=== PATIENT | male | born 1955 | race Two or more races ===

== ENCOUNTER 2017-04-04 05:42 | Observation (INO) | payer MEDICARE, OTHER ==
[~2017-04-04] VITALS: Ht 162.6 cm; Wt 76.2 kg
[2017-04-04] VITALS (24 sets, daily range): BP systolic 112–140; BP diastolic 68–80; PULSE 80–115; RESP 14–22; Ht 162.6 cm; Wt 76.2 kg
[2017-04-04 06:35] LABS: ADD SCAN DIFF NO
[2017-04-04 06:37] LABS: BASOPHILS % 0.4 % (0.0-2.0); EOSINOPHILS # 0.1 10^3/ul (0.0-0.5); EOSINOPHILS % 0.7 % (0.0-7.0); HEMATOCRIT 40.6 % (42.0-52.0); HEMOGLOBIN 13.7 g/dl (14.0-18.0); LYMPHOCYTES % 27.2 % (15.0-51.0); MEAN CORPUSCULAR HEMOGLOBIN 31.1 pg (29.0-33.0); MEAN CORPUSCULAR HGB CONC 33.7 g/dl (32.0-37.0); MEAN CORPUSCULAR VOLUME 92.1 fl (82.0-101.0); MEAN PLATELET VOLUME 9.8 fl (7.4-10.4); MONOCYTE # 0.6 10^3/ul (0.3-0.9); MONOCYTES % 7.5 % (0.0-11.0); NEUTROPHIL # 4.8 10^3/ul (1.6-7.5); NEUTROPHILS % 64.1 % (39.0-77.0); PLATELET COUNT 222 10^3/UL (140-415); RED BLOOD COUNT 4.41 10^6/ul (4.70-6.10); RED CELL DISTRIBUTION WIDTH 12.3 % (11.5-14.5); WHITE BLOOD COUNT 7.5 10^3/ul (4.8-10.8)
[2017-04-04 06:53] LABS: ALBUMIN 4.3 g/dl (3.3-4.9)
[2017-04-04 06:56] LABS: ALBUMIN/GLOBULIN RATIO 1.26; BILIRUBIN,INDIRECT 0.4 mg/dl (0-1.1); BILIRUBIN,TOTAL 0.4 mg/dl (0.2-1.3); TOTAL PROTEIN 7.7 g/dl (6.1-8.1)
[2017-04-04 07:03] LABS: CALCIUM 9.5 mg/dl (8.4-10.2); CREATININE 0.77 mg/dl (0.61-1.24); POTASSIUM 3.9 mmol/L (3.5-5.1)
[2017-04-04] MEDS ORDERED: BUPIVACAINE 0.5% (SDV) 30 ML INJ ONE (07:05)
[2017-04-04] MEDS ORDERED: ASPI81TA3 PO (07:05)
[2017-04-04] MEDS ORDERED: POLYMYXIN/BACITRACIN 1L IRRIG ONE (07:05)
[2017-04-04] MEDS ORDERED: METOPROLOL PO (07:05)
[2017-04-04] MEDS ORDERED: VANCOMYCIN 1 GM INJ ONE (07:05)
[2017-04-04] MEDS ORDERED: LIDOCAINE 0.5%/EPI (MDV) 50 ML INJ ONE (07:05)
[2017-04-04] MEDS ORDERED: THROMBIN 5000 UNIT VIAL ONE (07:05)
[2017-04-04] MEDS ORDERED: OMEG1CAP31 PO (07:05)
[2017-04-04] MEDS ORDERED: GLIP5TAB13 PO (07:05)
[2017-04-04] MEDS ORDERED: ATOR20TA38 PO (07:05)
[2017-04-04] MEDS ORDERED: LISI10TA2 PO (07:05)
[2017-04-04] MEDS ORDERED: GELATIN SIZE 100 SPONGE ONE (07:05)
[2017-04-04] MEDS ORDERED: METF1000 PO (07:05)
--- NOTE | 2017-04-04 07:35 | HPN ---
Date/Time of Note Date/Time of Note DATE: 04/04/17 TIME: 07:34 Interval H&P Admission Note Pt. seen H&P reviewed: No system changes JOSÉ SAEED MD April 04, 2017 07:35
[2017-04-04] MEDS ORDERED: MIDAZOLAM 1 MG/ML 2 ML INJ ONE (07:39)
[2017-04-04] MEDS ORDERED: PHENYLephrine (100 MCG/ML) 5ML SYG ONE (07:50)
--- NOTE | 2017-04-04 08:10 | PREOPHP ---
DATE OF ADMISSION: 04/04/2017 HISTORY OF PRESENT ILLNESS: The patient is a 61-year-old male with a history of chronic low back pain who a [id number] ago had acute exacerbation with left leg pain as well as saddle anesthesia. The patient did not have any persistent bowel or bladder issues, but ultimately sought evaluation for this after a few months, and a CT scan was performed that showed a herniated disk at L5-S1 as well as some stenosis at L4-L5. The patient was evaluated and ultimately seen, evaluated by me. I had recommended surgical intervention; however, the patient had declined surgery at that time. The patient returned many months later with the same left lower extremity symptoms radiating from his buttock down the posterior leg to the foot as well. The patient stated he still had symptoms consistent with some saddle anesthesia. A repeat MRI showed progression and L5-S1 disk. Nevertheless, there was still some left lateral recess stenosis. The patient at this time wished to pursue treatment. He denies any significant right lower extremity symptoms; he states that if he has these symptoms they are extremely rare and mild. He denies any significant low back pain per se other than chronic low back pain that he has always experienced. He states his main complaint is his left lower extremity radiating pain. He denies any bowel or bladder incontinence. He denies any neck pain or upper extremity numbness, tingling, or weakness. He denies any fevers, chills, or weight loss. PAST MEDICAL HISTORY: Significant for an VT, hypertension, diabetes. ALLERGIES: NO KNOWN DRUG ALLERGIES. PAST SURGICAL HISTORY: Denies. FAMILY HISTORY: Denies any history of significant inherited family disease or condition. SOCIAL HISTORY: The patient is a nonsmoker, rare drinker. He is . MEDICATIONS AT HOME: Include: 1. Atorvastatin. 2. Lisinopril. 3. Glipizide. 4. Metformin. 5. Baby aspirin -stopped. REVIEW OF SYSTEMS: A 12-point review of systems was performed. Pertinent positives and negatives listed in history of present illness and below. CONSTITUTIONAL: Denies any recent fevers, chills, or weight loss. HEMATOLOGIC: Denies any history of easy bruising or bleeding. PHYSICAL EXAMINATION: VITAL SIGNS: Temperature 97.7, pulse 80, respirations 20, blood pressure 114/68 , saturating 96% on room air. GENERAL: The patient is a well-developed, well-nourished, middle-aged male in no acute distress. HEAD AND NECK: Normocephalic, atraumatic. CHEST: Clear to auscultation. CARDIAC: Regular rate and rhythm. ABDOMEN: Nondistended, soft. EXTREMITIES: No clubbing, cyanosis, or edema. NEUROLOGIC: The patient is awake, alert, and oriented x3, fluent speech, follows commands readily and appropriately. Cranial nerves are intact. MOTOR: 5/5 bilaterally upper and lower extremities. The patient has grossly intact sensation to light touch, though assessment of saddle area not performed ; the patient deferred. Deep tendon reflexes were 2+, though the patient may have some slight increased right patellar reflex. Has no clonus, Babinski, or Adelfo sign. ASSESSMENT AND PLAN: A 61-year-old male with lumbar radiculopathy. I discussed patient's signs, symptoms, physical examination, and radiographic findings with him. The patient appears to have stenosis in the lateral recess which may compromise the L5 and/or S1 nerve roots on the left side. I discussed the risks, benefits, and alternatives of surgical intervention with the patient in detail. I explained that the patient's saddle anesthesia which has been present for over a year is unlikely to benefit from this operation as there does not appear to be any significant canal stenosis or compression of the spinal cord or cauda equina although this procedure this may help the patient's lower extremity radiculopathy. The patient consents for surgery. He has been cleared by his medical physician and is to be taken to OR. Dictated By: JOSÉ SAEED MD, LG/BERTA Conf#: [id number] DID#: [id number] MTDD
[2017-04-04] MEDS: CEFAZOLIN 2 GM/50 ML (PMX) 50 ML IVPB SCH (08:15)
[2017-04-04] MEDS ORDERED: EPHEDrine SULFATE 50 MG/5 ML SYG ONE (08:19)
[2017-04-04] MEDS ORDERED: SUCCINYLCHOLINE CHLORIDE 100 MG/5 ML SYG IV ONE (08:37)
[2017-04-04] MEDS ORDERED: LIDOCAINE 2% (SDV) 5 ML INJ ONE (08:37)
[2017-04-04] MEDS ORDERED: PROPOFOL 20 ML ONE (08:37)
[2017-04-04] MEDS ORDERED: ONDANSETRON 4 MG INJ ONE (08:37)
[2017-04-04] MEDS ORDERED: METOCLOPRAMIDE 10 MG INJ ONE (08:37)
[2017-04-04] MEDS ORDERED: FAMOTIDINE 20 MG INJ ONE (08:38)
[2017-04-04] MEDS ORDERED: HYDROmorphONE 2 MG/ML SYG ONE (10:26)
[2017-04-04] MEDS ORDERED: PROCHLORPERAZINE 10 MG INJ IV PRN (10:30)
[2017-04-04] MEDS ORDERED: FENTAnyl 50 MCG/ML VIAL IV PRN (10:30)
[2017-04-04] MEDS ORDERED: DIPHENHYDRAMINE 50 MG INJ IV PRN (10:30)
[2017-04-04] MEDS ORDERED: HYDROmorphONE (0.2 MG/ML) 10ML SYG IV PRN (10:30)
[2017-04-04] MEDS ORDERED: ONDANSETRON 4 MG INJ IV PRN ×3 (10:30→23:30)
[2017-04-04] MEDS ORDERED: MEPERIDINE 25 MG INJ IV PRN (10:30)
--- NOTE | 2017-04-04 10:58 | OPR ---
Date/Time of Note Date/Time of Note DATE: 04/04/17 TIME: 10:46 Operative Report Preoperative Diagnosis 1. lumbar stenosis L4-5, L5-S1. 2. lumbar radiculopathy. Postoperative Diagnosis 1. lumbar stenosis L4-5, L5-S1. 2. lumbar radiculopathy. Operation Performed 1. Left L4-5 hemilaminectomy, medial facetectomy and foraminotomy. 2. Left L5-S1 hemilaminectomy, medial facetectomy and foraminotomy. 3. Use of microscope for intraoperative microdissection. Surgeon: JOSÉ SAEED MD Anesthesia: general Anesthesiologist: AUREA JI MD Estimated Blood Loss: 0 - 10 ml's Specimens none. Tubes/Drains none. Complications: None Complications none. Pt Condition Post Procedure: stable Operative\Procedure Findings lateral recess stenosis. JOSÉ SAEED MD April 04, 2017 10:57
[2017-04-04] MEDS ORDERED: AL HYDROX/MG HYDROX/SIMETH 30 ML CUP PO PRN (11:00)
[2017-04-04] MEDS ORDERED: BETHANECHOL 25 MG TAB PO PRN (11:00)
[2017-04-04] MEDS ORDERED: ACETAMINOPHEN/CODEINE #3 TAB PO PRN (11:00)
[2017-04-04] MEDS ORDERED: NALOXONE (0.4 MG/ML) INJ IV PRN (11:00)
[2017-04-04] MEDS ORDERED: NACL 0.9% 3 ML SYG IV SCH ×2 (11:00→23:30)
[2017-04-04] MEDS ORDERED: DIPHENHYDRAMINE 50 MG CAP PO PRN (11:00)
[2017-04-04] MEDS ORDERED: ACETAMINOPHEN 325 MG TAB PO PRN ×2 (11:00→23:30)
[2017-04-04] MEDS ORDERED: ZOLPIDEM 5 MG TAB PO PRN (11:00)
[2017-04-04] MEDS ORDERED: CEPASTAT LOZENGE MT PRN (11:00)
--- NOTE | 2017-04-04 13:39 | RADRPT ---
PROCEDURE: Intraoperative fluoroscopy CLINICAL INDICATION: L4-S1 laminectomies TECHNIQUE: 3.5 seconds of fluoroscopy time was utilized. 2 Images are submitted for interpretation. COMPARISON: None FINDINGS: Successful intraoperative lumbar localization was performed. There are skin probes directed at the L4-5 and L5-S1 levels. IMPRESSION: Successful intraoperative, lumbar localization for L4-S1 laminectomies. RPTAT: EE .Martina Eugene MD, Date Time Electronically viewed and signed by .Martina Eugene MD, on 04/04/2017 13:39 .F/
[2017-04-04] MEDS: CEFAZOLIN 1 GM/50 ML (PMX) 50 ML IVPB SCH ×3 (13:50→23:55)
--- NOTE | 2017-04-04 14:16 | OPR ---
DATE OF OPERATION: 04/04/2017 PREOPERATIVE DIAGNOSES: 1. Lumbar stenosis L4, lumbar stenosis L5. 2. Lumbar radiculopathy. POSTOPERATIVE DIAGNOSES: 1. Lumbar stenosis L4, lumbar stenosis L5. 2. Lumbar radiculopathy. OPERATIONS PERFORMED: 1. Left L4-L5 hemilaminectomy, medial facetectomy, and foraminotomy. 2. Left L4-L5 hemilaminectomy, medial facetectomy, and foraminotomy. 3. Use of microscope for intraoperative microdissection. SURGEON: José Llamas MD ANESTHESIOLOGIST: Dr. Vanna Sarkar ANESTHESIA: General. ESTIMATED BLOOD LOSS: 10 mL. SPECIMENS COLLECTED: None. DRAINS PLACED: None. COMPLICATIONS: None. DISPOSITION: Recovery. INDICATIONS: The patient is a 61-year-old male with a history of chronic left lumbar radiculopathy. MRI revealed predominantly lateral recess stenosis at L5- S1 and L4-L5. The patient had disk bulge at L5-S1, but on serial MRI this had regressed. The patient also preoperative saddle anesthesia from likely when the patient had a herniated disk over a year before, but there did not appear to be any significant recurrent central canal stenosis. The risks, benefits, and alternatives of surgical intervention were discussed with the patient who consented to the procedure. DESCRIPTION OF PROCEDURE: The patient was seen preoperatively and appropriate surgical side confirmed. The patient was brought to the OR. He was sedated, intubated, and anesthesia was successfully induced. He was placed in a prone position on a Nathan frame. All pressure points were checked for appropriate padding. A Pearson catheter was placed. Sequential compression devices were placed. Perioperative antibiotics were given. After a surgical time out, the procedure commenced. A 10-blade knife was used to make an incision over the L4, L5, S1 spinous processes. Bovie electrocautery was used to dissect the spinous processes. Instrumentation was placed to localize the correct operative levels. Unilateral subperiosteal dissection along the spinous process of L4, L5, and S1 to medial facet was performed, and then Carlin self-retaining retractors were placed in the disk space. The patient had Carlin retractors placed inside the operative cavity. The microscope was brought for microdissection. Hemilaminectomy of the superior aspect of L5 and inferior aspect of L4 carried laterally to the medial facet joint was performed with a #2 and 3 mm Kerrison rongeurs as well as a high-speed drill. Ligaments and bone appeared to cause stenosis in the lateral recess and some compression of the L5 nerve root as it passed en passage at the L4-L5 level. A Sidon was used to palpate superiorly and inferiorly. There did not appear to be any evidence of significant compression. Next, a hemilaminectomy at the superior aspect of S1 and inferior aspect of L5 lamina was performed and carried out to the medial facet joint after removal of ligamentum flavum. S1 nerve root was visualized from its takeoff and inferiorly. The nerve root was retracted medially to look at the disk space where previously the disk herniation had been seen radiographically. Although there was some slight disk bulge, there did not appear to be any clear opening or violation of the annulus nor did this appear to be significantly compressed. I inspected the shoulder and opened up the space between the thecal sac and the S1 nerve root to investigate the axilla. Again, there was no free fragment visible, and given the bony and ligamentous removal, there did not appear to be a significant enough disk bulge that it was felt appropriate to open up the annulus for this. Overall, the nerve root appeared completely decompressed. Hemostasis was achieved with bipolar electrocautery and the wound was copiously irrigated with bacitracin irrigation. The incision was then closed with 0 Vicryl sutures in the fascia, 2-0 interrupted Vicryl sutures in the subcutaneous tissue, 3-0 interrupted Vicryl sutures in the subcuticular layer, and a running 4-0 subcuticular suture was used to close the skin. Dermabond was placed in the incision, allowed to dry, and a sterile dressing applied. The patient was taken off the table and extubated. He was taken to recovery. Sponge, needle, and cottonoid count were reported correct at the end of the case. Electrophysiologic monitoring with SSEP and EMG were performed and appeared normal at baseline and at the end of the case. Dictated By: JOSÉ LLAMAS MD, LG/BERTA Conf#: [id number] DID#: [id number] MTDD
--- NOTE | 2017-04-04 15:00 | CONS ---
Date/Time of Note Date/Time of Note DATE: 04/04/17 TIME: 14:52 Consultation Date/Type/Reason Admit Date/Time April 04, 2017 at 05:42 Reason for Consultation 61 year old male with history of HTN, Spinal stenosis, Hyperlipidemia, OA, CAD with stent in LCX now post spinal surgery. Thus far surgery is uneventful and he is awake and alert Constitutional: no complaints Eyes: other Social History Smoking Status: Never smoker Exam/Review of Systems Vital Signs Vitals Vital Signs Date Time Temp Pulse Resp B/P Pulse Ox O2 Delivery O2 Flow Rate FiO2 04/04/17 12:07 102 22 121/77 100 Nasal Cannula 04/04/17 11:21 2.0 04/04/17 10:58 97.8 Results Result Diagram: 04/04/17 0620 04/04/17 0620 Results 24 hrs Laboratory Tests Test 04/04/17 06:20 04/04/17 07:03 04/04/17 10:51 White Blood Count 7.5 Red Blood Count 4.41 L Hemoglobin 13.7 L Hematocrit 40.6 L Mean Corpuscular Volume 92.1 Mean Corpuscular Hemoglobin 31.1 Mean Corpuscular Hemoglobin Concent 33.7 Red Cell Distribution Width 12.3 Platelet Count 222 Mean Platelet Volume 9.8 Neutrophils % 64.1 Lymphocytes % 27.2 Monocytes % 7.5 Eosinophils % 0.7 Basophils % 0.4 Nucleated Red Blood Cells % 0.0 Neutrophils # 4.8 Lymphocytes # 2.0 Monocytes # 0.6 Eosinophils # 0.1 Basophils # 0.0 Nucleated Red Blood Cells # 0.0 Sodium Level 144 Potassium Level 3.9 Chloride Level 105 Carbon Dioxide Level 26 Anion Gap 17 H Blood Urea Nitrogen 15 Creatinine 0.77 Glucose Level 110 Calcium Level 9.5 Total Bilirubin 0.4 Direct Bilirubin 0.00 Indirect Bilirubin 0.4 Aspartate Amino Transf (AST/SGOT) 29 Alanine Aminotransferase (ALT/SGPT) 47 Alkaline Phosphatase 60 Total Protein 7.7 Albumin 4.3 Globulin 3.40 H Albumin/Globulin Ratio 1.26 Bedside Glucose 100 107 Medications Medications Current Medications Cefazolin Sodium/ Dextrose 50 ml @ 100 mls/hr OC IVPB ; Start 04/04/17 at 07:30 Potassium Chloride/Sodium Chloride (NS-KCl 20 Meq) 1,000 ml @ 100 mls/hr Q10H IV ; Start 04/04/17 at 07:30 Acetaminophen/ Codeine Phosphate (Tylenol No.3) 1 tab Q4H PRN PO PAIN LEVEL 1-5 ; Start 04/04/17 at 11:00 Acetaminophen/ Hydrocodone Bitart 1 tab 1 tab Q4H PRN PO PAIN LEVEL 1-5; Start 04/04/17 at 11:00 Cefazolin Sodium (Ancef 1 Gm/50 ml (Pmx)) 50 ml @ 100 mls/hr Q6 IVPB Last administered on 04/04/17t 13:50; Admin Dose 100 MLS/HR; Start 04/04/17 at 12:00 ; Stop 04/05/17 at 06:29 Zolpidem Tartrate (Ambien) 5 mg HS PRN PO INSOMNIA; Start 04/04/17 at 11:00 Ondansetron HCl (Zofran Inj) 4 mg Q6H PRN IV NAUSEA AND/OR VOMITING; Start at 11:00 Al Hydrox/Mg Hydrox/Simethicone (Mag-Al Plus) 15 ml Q4H PRN PO CONSTIPATION; Start 04/04/17 at 11:00 Docusate Sodium (Colace) 100 mg BID PO ; Start 04/05/17 at 09:00 Acetaminophen (Tylenol Tab) 650 mg Q4H PRN PO TEMP GREATER THAN 101F OR BRAVO; Start 04/04/17 at 11:00 Ferrous Sulfate (Ferrous Sulfate (Ec)) 325 mg TID PO ; Start 04/05/17 at 09:00 Diazepam (Valium) 5 mg Q4H PRN PO MUSCLE SPASMS; Start 04/04/17 at 11:00 Phenol (Cepastat Lozenge) 1 lozenge PRN PRN MT SORE THROAT; Start 04/04/17 at 11:00 Bethanechol Chloride (Urecholine) 25 mg PRN PRN PO UNABLE TO VOID; Start at 11:00 Diphenhydramine HCl (Benadryl) 50 mg Q6H PRN PO PRURITUS; Start 04/04/17 at 11: 00 Naloxone HCl (Narcan) 0.2 mg Q2M PRN IV RR 8 BREATHS/MIN OR LESS; Start at 11:00 SUNITHA ANGEL MD April 04, 2017 14:59
[2017-04-04] MEDS: ACCU-CHEK XX SCH (18:03)
[2017-04-04] MEDS: glipiZIDE 5 MG TAB PO SCH (18:03)
[2017-04-04] MEDS: metFORMIN 500 MG TAB PO SCH (18:03)
[2017-04-04] MEDS: DIAZEPAM 5 MG TAB PO PRN ×2 (18:03→23:55)
[2017-04-04] MEDS: HYDROCODONE/APAP (5/325) TAB PO PRN ×2 (19:41→23:56)
--- NOTE | 2017-04-04 20:22 | QN ---
Documentation Comment [id number] LESLIE PIZANO MD April 04, 2017 20:22
[2017-04-04] MEDS ORDERED: ATORVASTATIN 20 MG TAB PO SCH (21:00)
[2017-04-04] MEDS: NS + KCL 20 MEQ 1,000 ML IV SCH (21:55)
[2017-04-04] MEDS: SOD CHLORIDE 0.45% 1,000 ML IV SCH (23:07)
[2017-04-04] MEDS ORDERED: MAGNESIUM HYDROXIDE 30ML CUP PO PRN (23:30)
[2017-04-04] MEDS ORDERED: DOCUSATE SODIUM 100 MG CAP PO PRN (23:30)
[2017-04-05 00:05] VITALS: BP 110/70; RESP 20
--- NOTE | 2017-04-05 00:33 | HP ---
DATE OF ADMISSION: 04/04/2017 HISTORY OF PRESENT ILLNESS: The patient is a 61-year-old male, who has lumbar stenosis L4-5, L5-S1, lumbar radiculopathy. The patient underwent left 4-5 hemilaminectomy and medial facetectomy, and foraminectomy, left L5-S1 hemilaminectomy, medial facetectomy, and laminectomy. The patient is being seen post-procedure. The patient does have a history of hypertension and history of diabetes mellitus. The patient has a history of dyslipidemia. ALLERGY HISTORY: Denies. FAMILY HISTORY: Denies. SOCIAL HISTORY: Denies. MEDICATIONS: 1. Aspirin. 2. Lipitor. 3. Glipizide. 4. bp meds 5. Metformin. 6. bbblocker. 7. Metoprolol. REVIEW OF SYSTEMS: HEENT: Unremarkable. RESPIRATORY: Unremarkable. CARDIOVASCULAR: Unremarkable. ABDOMEN: Unremarkable. EXTREMITIES: Denies numbness and tingling. PHYSICAL EXAMINATION: GENERAL: The patient is awake, alert. VITAL SIGNS: Pulse of 102, blood pressure 114/72. HEAD: Atraumatic, normocephalic. Pupils equal, reactive to light. No pale conjunctivae or icterus. NECK: Supple. LUNGS: Clear. CARDIOVASCULAR: S1, S2 are normal. ABDOMEN: Soft, nontender. Bowel sounds present. No palpable mass. EXTREMITIES: There is no cyanosis, clubbing, or edema. CENTRAL NERVOUS SYSTEM: The patient is awake and alert. Moving upper and lower extremities without difficulty. LABORATORY DATA: Hematocrit 40.6, sodium 141, potassium 3.9. IMPRESSION: 1. Lumbar spine stenosis. The patient underwent L4-5 hemilaminectomy, facetectomy, and foraminectomy. 2. History of hypertension. 3. History of diabetes mellitus. 4. History of dyslipidemia. PLAN: Continue home medications, sliding scale, pain medications, DVT prophylaxis with SCD. Orders were done. Dictated By: LESLIE MEDINA/BERTA Conf#: [id number] DID#: [id number] MTDD
[2017-04-05] MEDS: NS + KCL 20 MEQ 1,000 ML IV SCH ×2 (03:30→14:30)
[2017-04-05 05:19] LABS: ADD SCAN DIFF NO
[2017-04-05 05:28] LABS: BASOPHILS % 0.2 % (0.0-2.0); EOSINOPHILS % 0.2 % (0.0-7.0); HEMATOCRIT 37.1 % (42.0-52.0); HEMOGLOBIN 12.2 g/dl (14.0-18.0); LYMPHOCYTES % 11.4 % (15.0-51.0); MEAN CORPUSCULAR HEMOGLOBIN 30.8 pg (29.0-33.0); MEAN CORPUSCULAR HGB CONC 32.9 g/dl (32.0-37.0); MEAN CORPUSCULAR VOLUME 93.7 fl (82.0-101.0); MEAN PLATELET VOLUME 10.2 fl (7.4-10.4); MONOCYTE # 0.9 10^3/ul (0.3-0.9); MONOCYTES % 10.1 % (0.0-11.0); NEUTROPHIL # 6.8 10^3/ul (1.6-7.5); NEUTROPHILS % 77.9 % (39.0-77.0); PLATELET COUNT 174 10^3/UL (140-415); RED BLOOD COUNT 3.96 10^6/ul (4.70-6.10); RED CELL DISTRIBUTION WIDTH 12.3 % (11.5-14.5); WHITE BLOOD COUNT 8.7 10^3/ul (4.8-10.8)
[2017-04-05 06:02] LABS: ALBUMIN 3.5 g/dl (3.3-4.9)
[2017-04-05] MEDS: HYDROCODONE/APAP (5/325) TAB PO PRN (06:04)
[2017-04-05] MEDS: DIAZEPAM 5 MG TAB PO PRN (06:04)
[2017-04-05 06:05] LABS: BILIRUBIN,INDIRECT 0.5 mg/dl (0-1.1); BILIRUBIN,TOTAL 0.5 mg/dl (0.2-1.3); CREATININE 0.84 mg/dl (0.61-1.24)
[2017-04-05] MEDS: CEFAZOLIN 1 GM/50 ML (PMX) 50 ML IVPB SCH (06:05)
[2017-04-05 06:06] LABS: ALBUMIN/GLOBULIN RATIO 1.12; CALCIUM 8.7 mg/dl (8.4-10.2); TOTAL PROTEIN 6.6 g/dl (6.1-8.1)
[2017-04-05] MEDS: SOD CHLORIDE 0.45% 1,000 ML IV SCH (06:32)
[2017-04-05 08:07] VITALS: BP 125/65; RESP 18
[2017-04-05] MEDS: ACCU-CHEK XX SCH ×2 (08:10→11:10)
[2017-04-05] MEDS ORDERED: LISINOPRIL 10 MG TAB PO SCH (09:00)
[2017-04-05] MEDS ORDERED: DOCUSATE SODIUM 100 MG CAP PO SCH (09:00)
[2017-04-05] MEDS ORDERED: ASPIRIN 81 MG TAB PO SCH (09:00)
[2017-04-05] MEDS: glipiZIDE 5 MG TAB PO SCH (09:08)
[2017-04-05] MEDS: FERROUS SULFATE (EC) 325 MG TAB PO SCH ×2 (09:09→12:32)
[2017-04-05] MEDS: metFORMIN 500 MG TAB PO SCH (09:13)
[2017-04-05] MEDS: CEFAZOLIN 2 GM/50 ML (PMX) 50 ML IVPB SCH (09:13)
[2017-04-05] MEDS ORDERED: METOPROLOL (XL) 25 MG TAB PO SCH (09:24)
[2017-04-05] MEDS ORDERED: METOPROLOL 25 MG PO SCH (09:30)
--- NOTE | 2017-04-05 14:59 | CONS ---
Date/Time of Note Date/Time of Note DATE: 04/05/17 TIME: 14:55 Consultation Date/Type/Reason Admit Date/Time April 04, 2017 at 05:42 Initial Consult Date Type of Consultation: follow Up Reason for Consultation 61 year old male with HTN, Hyperlipidemia , CAD/ STENTx1 post op spinal surgery post up 1 doing well. ambulate w/o difficulty. Will be going home. 24 HR Interval Summary Constitutional: chills, diaphoresis, disoriented, febrile, improved, no complaints, other, poor po, requiring IVF, requiring O2 Exam/Review of Systems Vital Signs Vitals Vital Signs Date Time Temp Pulse Resp B/P Pulse Ox O2 Delivery O2 Flow Rate FiO2 04/05/17 08:07 98.2 96 18 125/65 93 04/04/17 17:00 Nasal Cannula 04/04/17 14:45 2.0 Intake and Output 04/04/17 04/04/17 04/05/17 15:00 23:00 07:00 Intake Total 1360 ml 150 ml 1400 ml Output Total 325 ml 900 ml Balance 1035 ml 150 ml 500 ml Results Result Diagram: 04/05/17 0433 04/05/17 0433 Results 24 hrs Laboratory Tests Test 04/04/17 17:38 04/05/17 04:33 04/05/17 08:23 04/05/17 12:01 Bedside Glucose 104 122 139 White Blood Count 8.7 Red Blood Count 3.96 L Hemoglobin 12.2 L Hematocrit 37.1 L Mean Corpuscular Volume 93.7 Mean Corpuscular Hemoglobin 30.8 Mean Corpuscular Hemoglobin Concent 32.9 Red Cell Distribution Width 12.3 Platelet Count 174 # Mean Platelet Volume 10.2 Neutrophils % 77.9 H Lymphocytes % 11.4 L Monocytes % 10.1 Eosinophils % 0.2 Basophils % 0.2 Nucleated Red Blood Cells % 0.0 Neutrophils # 6.8 Lymphocytes # 1.0 Monocytes # 0.9 Eosinophils # 0.0 Basophils # 0.0 Nucleated Red Blood Cells # 0.0 Sodium Level 141 Potassium Level 4.0 Chloride Level 103 Carbon Dioxide Level 26 Anion Gap 16 Blood Urea Nitrogen 13 Creatinine 0.84 Glucose Level 95 Calcium Level 8.7 Total Bilirubin 0.5 Direct Bilirubin 0.00 Indirect Bilirubin 0.5 Aspartate Amino Transf (AST/SGOT) 25 Alanine Aminotransferase (ALT/SGPT) 34 Alkaline Phosphatase 56 Total Protein 6.6 # Albumin 3.5 Globulin 3.10 Albumin/Globulin Ratio 1.12 Medications Medications Current Medications Cefazolin Sodium/ Dextrose 50 ml @ 100 mls/hr OC IVPB Last administered on 09:13; Admin Dose 100 MLS/HR; Start 04/04/17 at 07:30 Potassium Chloride/Sodium Chloride (NS-KCl 20 Meq) 1,000 ml @ 100 mls/hr Q10H IV Last administered on 04/04/17 21:55; Admin Dose 100 MLS/HR; Start 04/04/17 at 07:30 Acetaminophen/ Codeine Phosphate (Tylenol No.3) 1 tab Q4H PRN PO PAIN LEVEL 1- 5 Last administered on 04/05/17 07:03; Admin Dose 1 TAB; Start 04/04/17 at 11: 00 Acetaminophen/ Hydrocodone Bitart (Hailey (5/325)) 1 tab Q4H PRN PO PAIN LEVEL 1 -5 Last administered on 04/05/17 06:04; Admin Dose 1 TAB; Start 04/04/17 at 11: 00 Zolpidem Tartrate (Ambien) 5 mg HS PRN PO INSOMNIA; Start 04/04/17 at 11:00 Al Hydrox/Mg Hydrox/Simethicone (Mag-Al Plus) 15 ml Q4H PRN PO CONSTIPATION; Start 04/04/17 at 11:00 Docusate Sodium (Colace) 100 mg BID PO Last administered on 04/05/17 09:09; Admin Dose 100 MG; Start 04/05/17 at 09:00 Ferrous Sulfate (Ferrous Sulfate (Ec)) 325 mg TID PO Last administered on 12:32; Admin Dose 325 MG; Start 04/05/17 at 09:00 Diazepam (Valium) 5 mg Q4H PRN PO MUSCLE SPASMS Last administered on 04/05/17 06:04; Admin Dose 5 MG; Start 04/04/17 at 11:00 Phenol (Cepastat Lozenge) 1 lozenge PRN PRN MT SORE THROAT; Start 04/04/17 at 11:00 Bethanechol Chloride (Urecholine) 25 mg PRN PRN PO UNABLE TO VOID Last administered on 04/04/17 18:03; Admin Dose 25 MG; Start 04/04/17 at 11:00 Diphenhydramine HCl (Benadryl) 50 mg Q6H PRN PO PRURITUS; Start 04/04/17 at 11: 00 Naloxone HCl (Narcan) 0.2 mg Q2M PRN IV RR 8 BREATHS/MIN OR LESS; Start at 11:00 Aspirin (Aspirin) 81 mg DAILY PO Last administered on 04/05/17 09:08; Admin Dose 81 MG; Start 04/05/17 at 09:00 Atorvastatin Calcium (Lipitor) 20 mg QHS PO Last administered on 04/04/17 20: 48; Admin Dose 20 MG; Start 04/04/17 at 21:00 Lisinopril 10 mg 10 mg DAILY PO Last administered on 04/05/17 09:09; Admin Dose 10 MG; Start 04/05/17 at 09:00 Sodium Chloride (1/2 NS) 1,000 ml @ 30 mls/hr Q24H IV Last administered on 06:32; Admin Dose 30 MLS/HR; Start 04/04/17 at 23:07 Ondansetron HCl (Zofran Inj) 4 mg Q6H PRN IV NAUSEA AND/OR VOMITING; Start at 23:30 Acetaminophen (Tylenol Tab) 650 mg Q6H PRN PO PAIN LEVEL 1-3 OR FEVER; Start at 23:30 Docusate Sodium (Colace) 100 mg Q12H PRN PO CONSTIPATION; Start 04/04/17 at 23: 30 Magnesium Hydroxide (Milk Of Mag) 30 ml DAILY PRN PO CONSTIPATION; Start at 23:30 Metoprolol Succinate (Toprol Xl) 25 mg DAILY PO Last administered on 04/05/17 10:00; Admin Dose 25 MG; Start 04/05/17 at 09:24 SUNITHA ANGEL MD April 05, 2017 14:59
--- NOTE | 2017-04-05 14:59 | PDOCDIS ---
Discharge Instructions CONDITION Patient Condition: Stable ACTIVITY: Activity Restrictions: Slowly Increase Activity FOLLOW UP/APPOINTMENTS Appointments f/u pcp [address] martinez 1 wk LESLIE PIZANO MD April 05, 2017 14:59
[2017-04-05] MEDS ORDERED: FER325 PO (15:02)
[2017-04-05] MEDS ORDERED: DOCU-216 PO (15:02)
[2017-04-05] MEDS ORDERED: HYDR-3498 PO (15:02)
== END 2017-04-05 16:10 | disposition home or self-care (01) ==
LOC: REC 05:42 → INTOOBSV 05:42 → MS1 13:36
PROVIDERS: ADMIT Neurological Surgery; ATTEND Neurological Surgery
DX: M54.16 Radiculopathy, lumbar region (principal); M48.06 Spinal stenosis, lumbar region; I25.10 Atherosclerotic heart disease of native coronary artery without angina pectoris; E78.5 Hyperlipidemia, unspecified; I10 Essential (primary) hypertension; Z98.61 Coronary angioplasty status
CPT/HCPCS: 63030; 72100; 80053; 82962; 85025; 86850; 86900; 86901; 96365; 96376; 97163; G0378; J0690; J1170; J2250; J2370; J2405; J2765; J3010; J3480; J7999; 99217; J3370